=== PATIENT | female | born 1975 | race Caucasian/White ===

== ENCOUNTER 2020-11-29 05:09 | Emergency (ER) | payer OTHER ==
[~2020-11-29] VITALS: Ht 165.1 cm; Wt 138.0 kg
[~2020-11-29 05:09] MED LIST: LASIX40 MG PO; LEVOTHYROXINE300 MCG PO; NICOTINE GUM2 MG MM; OSELTAMIVIR PHO75 MG PO
--- OUTSIDE RECORDS SUMMARY | 2020-11-29 05:12 | XMS ---
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.\T\nbsp; Please contact [employer] with mental health concerns.\T\nbsp; [place]/[facility]an [facility]: \T\nbsp; [place]: [phone]. E.D. VISIT COUNT (12 MO.) 4 [facility] JANIYA [place] [facility] TOTAL 5 NOTE: Visits indicate total known visits. ED/UCC VISIT TRACKING (12 MO.) 11/29/2020 05:10 JANIYA Lam [place] TYPE: Emergency COMPLAINT: - ABDOMINAL PAIN [facility] DIAGNOSES: - Overdose (Intentional) - Major depressive disorder, single episode, unspecified - overdose 03/29[facility]2020 13[facility] DIAGNOSES: - SOB - Cough - Dyspnea, unspecified - Shortness of Breath - Fatigue - Diarrhea (Adult) - Headache 03/29/2020 12[facility] DIAGNOSES: - SOB 03/15/2020 19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
[2020-11-29] MEDS ORDERED: LEVOTHYROXINE300 MCG PO (05:29)
[2020-11-29] MEDS ORDERED: CEPHALEXIN500 MG PO (06:34)
== END 2020-11-29 07:05 | disposition home or self-care (01) ==
LOC: ED 05:09
DX: N39.0 Urinary tract infection, site not specified (principal); E03.9 Hypothyroidism, unspecified; F17.200 Nicotine dependence, unspecified, uncomplicated; Z79.899 Other long term (current) drug therapy
CPT/HCPCS: 76705; 80053; 81001; 83690; 84703; 85025; 96374; 96375; 99284-25; J1170; J2405

== ENCOUNTER 2021-02-21 13:19 | Emergency (ER) | payer OTHER ==
[~2021-02-21] VITALS: Ht 165.1 cm; Wt 146.7 kg
[~2021-02-21 13:19] MED LIST changes: +CEPHALEXIN500 MG PO
[2021-02-21] MEDS ORDERED: SIMVASTATIN40 MG PO (13:28)
[2021-02-21] MEDS ORDERED: OMEPRAZOLE40 MG PO (13:28)
[2021-02-21] MEDS ORDERED: BUMETANIDE2 MG PO (13:28)
[2021-02-21] MEDS ORDERED: PREDNISONE20 MG PO (13:28)
--- NOTE | 2021-02-22 13:34 | EKG ---
[facility] [address] [facility] [place] [address] Signed Normal sinus rhythm Possible Left atrial enlargement Low voltage QRS Cannot rule out Anteroseptal infarct (cited on or before 05-SEP-2019) Abnormal ECG When compared with ECG of 06-SEP-2019 10:19, Questionable change in initial forces of Septal leads Confirmed by ANGIE THACKER MD ([id number]) on 02/22/2021 1:34:12 PM Electronically Signed By: ANGIE THACKER MD 02/22/21 1334 PATIENT NAME: JOAN FONG Electrocardiogram DATE OF : 79 PHYSICIAN: ANGIE THACKER MD REPORT #: [id number] REPORT IS CONFIDENTIAL AND NOT TO BE RELEASED WITHOUT AUTHORIZATION
== END 2021-02-21 15:00 | disposition home or self-care (01) ==
LOC: ED 13:19
DX: F15.10 Other stimulant abuse, uncomplicated (principal); E03.9 Hypothyroidism, unspecified; F17.200 Nicotine dependence, unspecified, uncomplicated; Z79.899 Other long term (current) drug therapy; Z79.52 Long term (current) use of systemic steroids
CPT/HCPCS: 80053; 85025; 93005; 93010; 99284-25; J7030

== ENCOUNTER 2022-05-13 20:50 | Emergency (ER) | payer OTHER ==
[~2022-05-13] VITALS: Ht 165.1 cm; Wt 146.5 kg
[~2022-05-13 20:50] MED LIST changes: +BUMETANIDE2 MG PO; +OMEPRAZOLE40 MG PO; +PREDNISONE20 MG PO; +SIMVASTATIN40 MG PO
[2022-05-13] MEDS ORDERED: CEPHALEXIN500 M1 PO (21:06)
[2022-05-14] MEDS ORDERED: NARCAN4 MG NAS (06:45)
== END 2022-05-13 21:22 | disposition home or self-care (01) ==
LOC: ED 20:50
DX: L03.115 Cellulitis of right lower limb (principal); E03.9 Hypothyroidism, unspecified; F17.200 Nicotine dependence, unspecified, uncomplicated; Z79.899 Other long term (current) drug therapy
CPT/HCPCS: 99283; A9270

== ENCOUNTER 2022-05-15 01:28 | Inpatient (IN) | payer OTHER ==
[~2022-05-15] VITALS: Ht 165.1 cm; Wt 136.0 kg
[~2022-05-15 01:28] MED LIST changes: +CEPHALEXIN500 M1 PO; +NARCAN4 MG NAS
--- NOTE | 2022-05-15 02:44 | EKG ---
[facility] [address] [facility] [place] [address] Signed Sinus tachycardia Possible Left atrial enlargement Low voltage QRS Borderline ECG When compared with ECG of 21-FEB-2021 13:39, Minimal criteria for Anteroseptal infarct are no longer present T wave inversion no longer evident in Anterior leads Confirmed by MARY HAMMOND MD ([id number]) on 05/15/2022 2:44:22 AM Electronically Signed By: MARY HAMMOND MD 05/15/22 0244 PATIENT NAME: JOAN FONG Electrocardiogram DATE OF : 79 PHYSICIAN: MARY HAMMOND MD REPORT #: [id number] REPORT IS CONFIDENTIAL AND NOT TO BE RELEASED WITHOUT AUTHORIZATION
[2022-05-15] MEDS ORDERED: BUPRENORPHINE-1 EACH SL (16:33)
[2022-05-18] MEDS ORDERED: AUGMENTIN XR 11 EACH PO (10:46)
== END 2022-05-18 11:00 | disposition left against medical advice (07) | DRG 871 ==
LOC: ED 01:28 → MS 03:35 → CCU 03:35 → MS 05-17 12:01
PROVIDERS: ADMIT Internal Medicine; ATTEND Internal Medicine
PROC: 3E03329 Introduction of Other Anti-infective into Peripheral Vein, Percutaneous Approach (ICD-10-PCS; principal; 2022-05-15)
PROC: 4A133R1 Monitoring of Arterial Saturation, Peripheral, Percutaneous Approach (ICD-10-PCS; 2022-05-15)
DX: A40.0 Sepsis due to streptococcus, group A (principal); G93.41 Metabolic encephalopathy; L03.115 Cellulitis of right lower limb; E87.1 Hypo-osmolality and hyponatremia; B17.9 Acute viral hepatitis, unspecified; E87.2 Acidosis; N17.9 Acute kidney failure, unspecified; Z68.42 Body mass index [BMI] 45.0-49.9, adult; E03.9 Hypothyroidism, unspecified; I77.6 Arteritis, unspecified; R65.20 Severe sepsis without septic shock; Z20.822 Contact with and (suspected) exposure to COVID-19; E87.6 Hypokalemia; E83.42 Hypomagnesemia; F15.10 Other stimulant abuse, uncomplicated; F11.10 Opioid abuse, uncomplicated; F17.210 Nicotine dependence, cigarettes, uncomplicated; E66.01 Morbid (severe) obesity due to excess calories; Z91.19 Patient's noncompliance with other medical treatment and regimen; Z98.890 Other specified postprocedural states; Z98.891 History of uterine scar from previous surgery; Z79.2 Long term (current) use of antibiotics; Z79.899 Other long term (current) drug therapy; Z53.29 Procedure and treatment not carried out because of patient's decision for other reasons
CPT/HCPCS: 36415; 36600; 51702; 71045; 80048; 80053; 80076; 80202; 81001; 82553; 82595; 82803; 83605; 83735; 84439; 84443; 84484; 85025; 85379; 85610; 85730; 86038; 86140; 86161; 86705; 86803; 87040; 87077; 87186; 87502; 93005; 93010; 93306; 93971; 94640; 97161; 97166; 99285-25; 99406; A9270; C9113; G0480; J0690; J0692; J1650; J2060; J2405; J2540; J2543; J3370; J3475; J3480; J7030; J7060; J7121; Q0177; U0003

== ENCOUNTER 2022-07-07 18:05 | Emergency (ER) | payer OTHER ==
[~2022-07-07] VITALS: Ht 165.1 cm; Wt 133.3 kg
[~2022-07-07 18:05] MED LIST changes: +AUGMENTIN XR 11 EACH PO; +BUPRENORPHINE-1 EACH SL
--- OUTSIDE RECORDS SUMMARY | 2022-07-07 18:08 | XMS ---
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 [facility] TOTAL 9 NOTE: Visits indicate total known visits. ED/UCC VISIT TRACKING (12 MO.) 07/07/2022 18:06 JANIYA Lam OR TYPE: Emergency COMPLAINT: - POSS SEIZURES [facility]/2022 17:22 [facility] DIAGNOSES: - Other specified disorders of bone, upper arm - Left Arm Pain - Arm Pain 05/19/2022 02:40 [facility] Mary [facility]laY[facility] [place] TYPE: Emergency DIAGNOSES: - Cellulitis of right lower limb - Cellulitis 05/19/2022 00:00 [facility] DIAGNOSES: - multiple complaints and requested a cleaner housekeeping as well - Procedure and treatment not carried out due to patient leaving prior to being seen by health care provider 05/15/2022 01:28 JANIYA Smith TYPE: Emergency COMPLAINT: - ALTERED MENTAL STATUS 05/14/2022 05:31 JANIYA Lam [place] TYPE: Emergency COMPLAINT: - LEG PAIN DIAGNOSES: - Opioid abuse, uncomplicated - Hypothyroidism, unspecified - Low back pain, unspecified - Nicotine dependence, unspecified, uncomplicated 05/13/2022 20:51 JANIYA Lam [place] TYPE: Emergency COMPLAINT: - WOUND CARE DIAGNOSES: - Nicotine dependence, unspecified, uncomplicated - Cellulitis of right lower limb - Hypothyroidism, unspecified - Other penitentiary (current) drug therapy [facility] DIAGNOSES: - left ear pain - Unspecified otitis externa, left ear 09/18/2021 15[facility] DIAGNOSES: - Abdominal Pain - Procedure and treatment not carried out due to patient leaving prior to being seen by health care provider - vomiting INPATIENT VISIT TRACKING (12 MO.) 05/19/2022 02:[address] [facility] [facility] WHITE TYPE: Medical Surgical DIAGNOSES: - Cellulitis of right lower limb - Essential (primary) hypertension 05/15/2022 03:35 JANIYA Smith TYPE: Medical Surgical COMPLAINT: - RLE CELLULITIS, METABOLIC ENCEPHALOPATHY DIAGNOSES: - Metabolic encephalopathy - Body mass index [BMI] 45.0-49.9, adult - Body mass index [BMI] 45.0-49.9, adult - History of uterine scar from previous surgery - Hypo-osmolality and hyponatremia - Nicotine dependence, cigarettes, uncomplicated - Acute kidney failure, unspecified - Acidosis - Hypokalemia - Morbid (severe) obesity due to excess calories - Acute kidney failure, unspecified - Other specified postprocedural states - Other stimulant abuse, uncomplicated - 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 supervisor (current) 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 - Hypothyroidism, unspecified - Metabolic encephalopathy - Opioid abuse, uncomplicated - Other penitentiary (current) drug therapy - Severe sepsis without septic shock - Arteritis, unspecified - Hypo-osmolality and hyponatremia - Sepsis due to streptococcus, group A - Other penitentiary (current) drug therapy - Other specified postprocedural states - Procedure and treatment not carried out because of patient's decision for other reasons - Hypokalemia - History of uterine scar from previous surgery - Contact with and (suspected) exposure to COVID-19 - terminal supervisor (current) 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 - Acute viral hepatitis, unspecified - Patient's noncompliance with other medical treatment and regimen - Opioid abuse, uncomplicated - Arteritis, unspecified - Other stimulant abuse, uncomplicated - Acute viral hepatitis, unspecified - Morbid (severe) obesity due to excess calories - Procedure and treatment not carried out because of patient's decision for other reasons - Nicotine dependence, cigarettes, uncomplicated - Patient's noncompliance with other medical treatment and regimen - Cellulitis of right lower limb - Severe sepsis without septic shock - Contact with and (suspected) exposure to COVID-19 - Hypomagnesemia - Hypomagnesemia - Sepsis due to streptococcus, group A - Acidosis - Hypothyroidism, unspecified [email or web address]
== END 2022-07-07 19:50 | disposition left against medical advice (07) ==
LOC: ED 18:05
DX: R40.4 Transient alteration of awareness (principal); I10 Essential (primary) hypertension; E03.9 Hypothyroidism, unspecified; F17.200 Nicotine dependence, unspecified, uncomplicated; Z79.899 Other long term (current) drug therapy
CPT/HCPCS: 71045; 80053; 81001; 84443; 84484; 84703; 85025; 99283-25; G0480